=== PATIENT | male | born 1980 | race Caucasian/White ===

== ENCOUNTER 2019-02-22 06:48 | Emergency (ER) | payer SELFPAY ==
[2019-02-22] MEDS ORDERED: ONDA4TAB12 PO (07:21)
[2019-02-22 07:22] VITALS: BP 128/80
[2019-02-22] MEDS ORDERED: ONDANSETRON ODT 4 MG TAB.RAPDIS. PO ONE (07:30)
[2019-02-22] MEDS ORDERED: ACETAMINOPHEN 500 MG TABLET PO ONE (07:30)
--- NOTE | 2019-02-22 08:03 | RAD ---
PA and lateral chest. HISTORY: Fever PA and lateral views were taken of the chest. There are mild hazy patchy bilateral areas of infiltrate. An atypical pneumonia is most likely. Heart is normal in size. There is no pleural effusion. IMPRESSION: 1. Mild hazy bilateral infiltrates. Electronically signed by: Heraclio Molina MD (02/22/2019 8:00 AM) [id number]
[2019-02-22] MEDS ORDERED: DOXY100C2 PO (08:05)
--- NOTE | 2019-02-22 08:27 | PHYS DOC ---
Past Medical History Alcohol Use: Heavy Additional Information: daily "tallboy" Adult General Chief Complaint Chief Complaint: FLU SYMPTOM HPI HPI Patient is a 38 year old m p/w flu like symptoms since thursday Patient has had cough bodyaches fever they hit him suddenly at 10 PM on Thursday night he said vomiting he has had just a little bit of soup during that time he's coughed up some yellow sputum his kids are also sick at home was sick earlier in the week with similar symptoms as well patient having vivid nightmares as well and also having a lot of diarrhea 2. No other past medical history denies daily medications. He's been off of work due to the symptoms Review of Systems Review of Systems Constitutional: Cardiovascular: No additional information not addressed in HPI [] GI: Denies : Denies dysuria or hematuria [] Musculoskeletal: Denies Integument: Denies rash or skin lesions [] Neurologic: Denies focal weakness or sensory changes [] Endocrine: Denies polyuria or polydipsia [] All other systems were reviewed and found to be within normal limits, except as documented in this note. Current Medications Current Medications Current Medications Medications (Trade) Dose Ordered Sig/Christin Start Time Stop Time Status Last Admin Dose Admin Acetaminophen (Tylenol) 1,000 mg 1X ONCE 02/22/19 07:30 02/22/19 07:32 DC 02/22/19 07:35 1,000 MG Ondansetron HCl (Zofran Odt) 4 mg 1X ONCE 02/22/19 07:30 02/22/19 07:32 DC 02/22/19 07:35 4 MG Allergies Allergies Allergies Coded Allergies Type Severity Reaction Last Updated Verified No Known Drug Allergies 02/22/19 No Physical Exam Physical Exam Constitutional: Well developed, well nourished, no acute distress, non-toxic appearance. [] HENT: Normocephalic, atraumatic, bilateral external ears normal, oropharynx moist, no oral exudates, nose normal. [] Eyes: PERRLA, EOMI, conjunctiva normal, no discharge. [] Neck: Normal range of motion, no tenderness, supple, no stridor. [] Cardiovascular: Mild tachycardia no definite murmurs Lungs & Thorax: Rock at the left lung base Abdomen: Bowel sounds normal, soft, no tenderness, no masses, no pulsatile masses. [] Skin: Warm, dry, no erythema, no rash. [] Back: No tenderness, no CVA tenderness. [] Extremities: No tenderness, no cyanosis, no clubbing, ROM intact, no edema. [] Neurologic: Alert and oriented X 3, normal motor function, normal sensory function, no focal deficits noted. [] Psychologic: Affect normal, judgement normal, mood normal. [] Current Patient Data Vital Signs Vital Signs Date Time Temp Pulse Resp B/P (MAP) Pulse Ox O2 Delivery O2 Flow Rate FiO2 02/22/19 07:22 102.9 113 20 128/80 (96) 93 Room Air 102.9 EKG EKG [] Radiology/Procedures Radiology/Procedures [] Impressions: PA and lateral views were taken of the chest. There are mild hazy patchy bilateral areas of infiltrate. An atypical pneumonia is most likely. Heart is normal in size. There is no pleural effusion. IMPRESSION: 1. Mild hazy bilateral infiltrates. Electronically signed by: Maya Collier MD (02/22/2019 8:00 AM) [id number] DICTATED and SIGNED BY: MAYA COLLIER MD DATE: 02/22/19 0800 Course & Med Decision Making Course & Med Decision Making Pertinent Labs and Imaging studies reviewed. 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 Not a candidate for Tamiflu at this time. Patient did have some faint rhonchi at the left lung base and given the timing we did opt for a chest x-ray which showed possible atypical pneumonia. Perhaps there is a viral pneumonia component but I think prescription for doxycycline is reasonable. Patient was prescribed that as well as Zofran overall he is well-appearing speaking full sentences mild tachycardia is appropriate for the level of fever. I given strict return precautions to come back in 2-3 days should symptoms not improve as expected once on antibiotics and once the flu symptoms have run their course. Return precautions discussed and he voiced understanding. He has no comorbidities I would anticipate a good recovery. Dragon Disclaimer Dragon Disclaimer This electronic medical record was generated, in whole or in part, using a voice recognition dictation system. Departure Departure Impression: Primary Impression: Influenza Additional Impression: Pneumonia Disposition: HOME, SELF-CARE Condition: STABLE Patient Instructions: Influenza, Adult Scripts Doxycycline Hyclate (DOXYCYCLINE HYCLATE) 100 Mg Capsule 1 CAP PO BID, #20 CAP Prov: RUIZ GALLEGOS MD 02/22/19 Ondansetron (ONDANSETRON ODT) 4 Mg Tab.rapdis 1 TAB PO PRN Q6-8HRS PRN for NAUSEA/VOMITING, #16 TAB Prov: RUIZ GALLEGOS MD 02/22/19 Problem Qualifiers RUIZ GALLEGOS MD Feb 22, 2019 08:27
== END 2019-02-22 08:28 | disposition home or self-care (01) ==
LOC: ER 06:48
DX: J11.1 Influenza due to unidentified influenza virus with other respiratory manifestations (principal); J12.89 Other viral pneumonia; R11.10 Vomiting, unspecified; F10.10 Alcohol abuse, uncomplicated
CPT/HCPCS: 71046; 99284; Q0162